=== PATIENT | female | born 1975 | race African-American/Black ===

== ENCOUNTER 2017-02-09 07:13 | Emergency (ER) | payer SELFPAY ==
[2017-02-09] MEDS ORDERED: Bupivacaine 0.5% 10 ML VIAL ONE (07:28)
[2017-02-09] MEDS ORDERED: Tetracaine HCl 0.5% Ophth Soln 2 ML Bottle ONE (07:29)
[2017-02-09] MEDS ORDERED: Fluorescein Opthalmic Strip ONE (07:30)
[2017-02-09] MEDS ORDERED: Erythromycin Base 0.5% Ophth Oint 3.5 gm Tube ONE (07:39)
== END 2017-02-09 07:59 | disposition home or self-care (01) ==
LOC: BURERS 07:13
DX: H10.9 Unspecified conjunctivitis (principal); E11.9 Type 2 diabetes mellitus without complications; F17.210 Nicotine dependence, cigarettes, uncomplicated
CPT/HCPCS: 99282; J3490